=== PATIENT | female | born 1955 | race Caucasian/White ===

== ENCOUNTER 2018-10-08 10:28 | Day surgery (SDC) | payer MEDICARE, OTHER ==
[~2018-10-08] VITALS: Ht 167.6 cm; Wt 75.0 kg
[2018-10-08 11:22] VITALS: Ht 167.6 cm; Wt 75.0 kg
[2018-10-08] MEDS ORDERED: HCTZ DAILY (11:30)
[2018-10-08] MEDS ORDERED: PRED5TAB PO (11:30)
[2018-10-08] MEDS ORDERED: VIT D DAILY (11:30)
[2018-10-08] MEDS ORDERED: [UNRECOGNIZED DRUG - OTHER] (11:30)
[2018-10-08 11:49] VITALS: BP 154/80; PULSE 78; RESP 17
[2018-10-08] MEDS ORDERED: LIDOCAINE 4% SOLUTION 50 ML BTL ONE (12:02)
[2018-10-08] MEDS ORDERED: FENTAnyl 50 MCG/ML VIAL ONE (12:47)
[2018-10-08] MEDS ORDERED: MIDAZOLAM 1 MG/ML 2 ML INJ ONE ×3 (12:47)
== END 2018-10-08 15:25 | disposition home or self-care (01) ==
LOC: GIL 10:28
PROVIDERS: ATTEND Internal Medicine Gastroenterology
DX: Z12.11 Encounter for screening for malignant neoplasm of colon (principal); K29.50 Unspecified chronic gastritis without bleeding; K64.0 First degree hemorrhoids; K20.8 Other esophagitis; I10 Essential (primary) hypertension
CPT/HCPCS: 43239; 45378; 88305; 88312; J2250; J3010